=== PATIENT | male | born 1945 | race Caucasian/White ===

== ENCOUNTER → 2016-09-09 | Outpatient (CLI) | payer MEDICARE, OTHER | END | disposition home or self-care (01) | LOC: Rad HDHVI 11:12 | PROVIDERS: ATTEND Internal Medicine Cardiovascular Disease | DX: S12.091D Other nondisplaced fracture of first cervical vertebra, subsequent encounter for fracture with routine healing (principal); M47.892 Other spondylosis, cervical region; Z98.1 Arthrodesis status; X58.XXXD Exposure to other specified factors, subsequent encounter | CPT/HCPCS: 72050 ==

== ENCOUNTER → 2016-10-15 | Outpatient (CLI) | payer MEDICARE, OTHER | END | disposition home or self-care (01) | LOC: Rad HDHVI 11:13 | PROVIDERS: ATTEND Internal Medicine Cardiovascular Disease | DX: M47.892 Other spondylosis, cervical region (principal); Z98.1 Arthrodesis status | CPT/HCPCS: 72040 ==

== ENCOUNTER → 2016-11-19 | Outpatient (CLI) | payer MEDICARE, OTHER | END | disposition home or self-care (01) | LOC: Rad HDHVI 14:18 | PROVIDERS: ATTEND Internal Medicine Cardiovascular Disease | DX: M47.892 Other spondylosis, cervical region (principal); M12.88 Other specific arthropathies, not elsewhere classified, other specified site; I10 Essential (primary) hypertension; I73.9 Peripheral vascular disease, unspecified; R06.00 Dyspnea, unspecified; Z98.1 Arthrodesis status | CPT/HCPCS: 72040 ==

== ENCOUNTER → 2016-12-22 | Outpatient (CLI) | payer MEDICARE, OTHER | END | disposition home or self-care (01) | LOC: Rad HDHVI 10:57 | PROVIDERS: ATTEND Internal Medicine Cardiovascular Disease | DX: M47.812 Spondylosis without myelopathy or radiculopathy, cervical region (principal); M12.88 Other specific arthropathies, not elsewhere classified, other specified site; M43.22 Fusion of spine, cervical region | CPT/HCPCS: 72052 ==

== ENCOUNTER → 2017-03-03 | Outpatient (CLI) | payer MEDICARE, OTHER ==
[~2017-03-03] VITALS: Ht 165.1 cm; Wt 54.4 kg
[2017-03-03 12:13] LABS: Urine Bilirubin Negative (Negative); Urine Blood Negative /uL (Negative); Urine Color Yellow (Yellow); Urine Glucose Normal (Normal); Urine Ketone Negative (Negative); Urine Nitrite Negative (Negative); Urine Urobilinogen Normal (Negative)
[2017-03-03 12:16] LABS: Basophils # (auto) 0 uL; Basophils % (auto) 0.6 % (0.0-2.0); CONDITION Y; Eosinophils # (auto) 0.2 uL; Eosinophils % (auto) 3.1 % (0.0-7.0); Hematocrit 44.8 % (41.0-53.0); Lymphocytes # (auto) 1.9 uL; Lymphocytes % (auto) 28.4 % (10.0-50.0); Mean Corpuscular Hemoglobin 30.4 pg (28.0-32.0); Mean Corpuscular Hgb Conc. 33.4 g/dL (32.0-36.0); Mean Corpuscular Volume 90.9 fL (80.0-100.0); Mean Platelet Volume 8.8 fL (7.4-10.4); Monocytes # (auto) 0.6 uL; Monocytes % (auto) 9.7 % (0.0-12.0); Neutrophils # (auto) 3.8 uL; Neutrophils % (auto) 58.2 % (37.0-80.0); Platelet Count (auto) 327 10^3/uL (140-450); Red Cell Distribution Width 15.9 % (11.6-16.0); White Blood Cell 6.6 10^3/uL (4.4-10.8)
[2017-03-03 13:18] LABS: Albumin 3.8 g/dL (3.4-5.0); BUN/Creatinine Ratio 18.8; Bilirubin, Direct 0.1 mg/dL (0-0.2); Bilirubin, Total 0.6 mg/dL (0.2-1.0); Calcium 8.9 mg/dL (8.5-10.1); Potassium 4.1 mmol/L (3.5-5.1); Total Protein 7.2 g/dL (6.4-8.2)
== END | disposition home or self-care (01) ==
LOC: Rad HDHVI 08:19
PROVIDERS: ATTEND Internal Medicine Cardiovascular Disease
DX: I10 Essential (primary) hypertension (principal); E78.00 Pure hypercholesterolemia, unspecified; K74.1 Hepatic sclerosis; E11.9 Type 2 diabetes mellitus without complications; I70.90 Unspecified atherosclerosis; R97.20 Elevated prostate specific antigen [PSA]; E03.9 Hypothyroidism, unspecified; D64.9 Anemia, unspecified; R53.81 Other malaise; E55.9 Vitamin D deficiency, unspecified; N39.0 Urinary tract infection, site not specified
CPT/HCPCS: 36415; 78452; 80048; 80061; 80076; 81003; 82306; 83036; 84153; 84403; 84443; 85025; 93017; 96374; A9500

== ENCOUNTER → 2017-05-11 | Outpatient (CLI) | payer MEDICARE, OTHER ==
[~2017-05-11] MED LIST: IOHEXOL 350 MG/ML 100ML IJ ONE
[2017-05-11 11:00] VITALS: BP 132/85
[2017-05-11 12:05] VITALS: BP 150/80
== END | disposition home or self-care (01) ==
LOC: Rad HDHVI 10:43
PROVIDERS: ATTEND Internal Medicine Cardiovascular Disease
DX: S12.090A Other displaced fracture of first cervical vertebra, initial encounter for closed fracture (principal); R70.0 Elevated erythrocyte sedimentation rate; M43.22 Fusion of spine, cervical region; I25.10 Atherosclerotic heart disease of native coronary artery without angina pectoris; R91.1 Solitary pulmonary nodule; X58.XXXA Exposure to other specified factors, initial encounter; Y93.89 Activity, other specified; Y92.89 Other specified places as the place of occurrence of the external cause; Y99.8 Other external cause status
CPT/HCPCS: 36415; 70491; 71260; 82565; 85652; 96374; G0463; Q9967

== ENCOUNTER → 2019-01-18 | Outpatient (CLI) | payer MEDICARE, OTHER ==
[2019-01-18 09:45] VITALS: BP 114/73
[2019-01-18 11:42] VITALS: BP 136/70
== END | disposition home or self-care (01) ==
LOC: Rad HDHVI 09:37
PROVIDERS: ATTEND Internal Medicine Cardiovascular Disease
DX: R94.4 Abnormal results of kidney function studies (principal)
CPT/HCPCS: 36415; 70496; 82565; G0463; Q9967

== ENCOUNTER → 2019-01-19 | Outpatient (CLI) | payer MEDICARE, OTHER | END | disposition home or self-care (01) | LOC: Rad HDHVI 15:07 | PROVIDERS: ATTEND Internal Medicine Cardiovascular Disease | DX: R00.2 Palpitations (principal); R07.89 Other chest pain | CPT/HCPCS: 93880 ==

== ENCOUNTER → 2020-06-05 | Outpatient (CLI) | payer MEDICARE, OTHER | END | disposition home or self-care (01) | LOC: Rad HDHVI 14:26 | PROVIDERS: ATTEND Internal Medicine Cardiovascular Disease | DX: R00.2 Palpitations (principal); G45.9 Transient cerebral ischemic attack, unspecified | CPT/HCPCS: 93306 ==

== ENCOUNTER → 2020-06-07 | Outpatient (CLI) | payer MEDICARE, OTHER ==
[2020-06-07 11:56] LABS: Urine Blood Negative /uL (Negative); Urine Specific Gravity 1.021 (1.001-1.035)
[2020-06-07 11:58] LABS: Basophils # (auto) 0.1 10 ^3/uL (0-0.2); Basophils % (auto) 1.1 % (0.0-2.0); Eosinophils # (auto) 0.2 10 ^3/uL (0-0.8); Eosinophils % (auto) 2.7 % (0.0-7.0); Hematocrit 45.7 % (41.0-53.0); Hemoglobin 15.6 g/dL (13.5-17.5); Lymphocytes # (auto) 1.6 10 ^3/uL (0.4-5.4); Mean Corpuscular Hemoglobin 32.3 pg (28.0-32.0); Mean Corpuscular Hgb Conc. 34.2 g/dL (32.0-36.0); Mean Corpuscular Volume 94.4 fL (80.0-100.0); Monocytes # (auto) 0.7 10 ^3/uL (0-1.3); Monocytes % (auto) 10.8 % (0.0-12.0); Neutrophils # (auto) 3.6 10 ^3/uL (1.6-8.6); Neutrophils % (auto) 59.4 % (37.0-80.0); Platelet Count (auto) 244 10^3/uL (140-450); Red Blood Cells 4.84 10^6/uL (4.5-5.90); Red Cell Distribution Width 13.5 % (11.8-14.3)
[2020-06-07 12:16] LABS: Albumin 3.8 g/dL (3.4-5.0); Calcium 8.9 mg/dL (8.5-10.1)
[2020-06-07 12:41] LABS: Prostate Specific Antigen 2.43 ng/mL (0.0-4.0)
== END | disposition home or self-care (01) ==
LOC: LAB 08:10
PROVIDERS: ATTEND Internal Medicine Cardiovascular Disease
DX: C61 Malignant neoplasm of prostate (principal); D51.3 Other dietary vitamin B12 deficiency anemia; I10 Essential (primary) hypertension; E11.9 Type 2 diabetes mellitus without complications; E55.9 Vitamin D deficiency, unspecified; D64.9 Anemia, unspecified; R00.2 Palpitations; R53.1 Weakness; R30.0 Dysuria
CPT/HCPCS: 36415; 80053; 80061; 81003; 82306; 82607; 83036; 84153; 84403; 84439; 84443; 85025

== ENCOUNTER → 2020-06-12 | Outpatient (CLI) | payer MEDICARE, OTHER ==
[~2020-06-12] VITALS: Ht 165.1 cm; Wt 52.2 kg
== END | disposition home or self-care (01) ==
LOC: Rad HDHVI 09:37
PROVIDERS: ATTEND Internal Medicine Cardiovascular Disease
DX: R06.02 Shortness of breath (principal); R07.89 Other chest pain
CPT/HCPCS: 78452; 93017; 96374; A9500

== ENCOUNTER → 2021-07-02 | Outpatient (CLI) | payer MEDICARE, OTHER ==
[2021-07-02 11:43] LABS: Basophils # (auto) 0 10 ^3/uL (0-0.2); Basophils % (auto) 0.7 % (0.0-2.0); Eosinophils # (auto) 0.2 10 ^3/uL (0-0.8); Eosinophils % (auto) 3.7 % (0.0-7.0); Hematocrit 44.7 % (41.0-53.0); Hemoglobin 15.6 g/dL (13.5-17.5); Lymphocytes # (auto) 1.6 10 ^3/uL (0.4-5.4); Lymphocytes % (auto) 29.5 % (10.0-50.0); Mean Corpuscular Hemoglobin 32.4 pg (28.0-32.0); Mean Corpuscular Hgb Conc. 34.8 g/dL (32.0-36.0); Monocytes # (auto) 0.5 10 ^3/uL (0-1.3); Monocytes % (auto) 10.1 % (0.0-12.0); Neutrophils # (auto) 2.9 10 ^3/uL (1.6-8.6); Nucleated Red Blood Cells % 0.1 %; Red Blood Cells 4.81 10^6/uL (4.5-5.90); Red Cell Distribution Width 13.3 % (11.8-14.3); Urine Blood Negative /uL (Negative); Urine Specific Gravity 1.019 (1.001-1.035); White Blood Cell 5.3 10^3/uL (4.4-10.8)
[2021-07-02 11:56] LABS: Free T4 (Free Thyroxine) 1.3 ng/dL (0.89-1.76)
[2021-07-02 11:57] LABS: Potassium 4.1 mmol/L (3.5-5.1); Prostate Specific Antigen 2.16 ng/mL (0.0-4.0)
[2021-07-02 12:31] LABS: Albumin 3.3 g/dL (3.4-5.0); BUN/Creatinine Ratio 24.4; Bilirubin, Total 0.8 mg/dL (0.2-1.0); Calcium 8.6 mg/dL (8.5-10.1)
== END | disposition home or self-care (01) ==
LOC: LAB 08:01
PROVIDERS: ATTEND Internal Medicine Cardiovascular Disease
DX: C61 Malignant neoplasm of prostate (principal); E11.9 Type 2 diabetes mellitus without complications; D64.9 Anemia, unspecified; D51.3 Other dietary vitamin B12 deficiency anemia; I10 Essential (primary) hypertension; E55.9 Vitamin D deficiency, unspecified; R00.2 Palpitations; R53.1 Weakness; R30.0 Dysuria
CPT/HCPCS: 36415; 80053; 80061; 81003; 82306; 82607; 83036; 84153; 84403; 84439; 84443; 85025

== ENCOUNTER → 2021-08-27 | Outpatient (CLI) | payer MEDICARE, OTHER | END | disposition home or self-care (01) | LOC: Rad HDHVI 14:50 | PROVIDERS: ATTEND Internal Medicine Cardiovascular Disease | DX: S12.090A Other displaced fracture of first cervical vertebra, initial encounter for closed fracture (principal); Z98.1 Arthrodesis status; X58.XXXA Exposure to other specified factors, initial encounter; Y93.89 Activity, other specified; Y92.89 Other specified places as the place of occurrence of the external cause; Y99.8 Other external cause status | CPT/HCPCS: 72125 ==

== ENCOUNTER → 2021-09-03 | Outpatient (CLI) | payer MEDICARE, OTHER | END | disposition home or self-care (01) | LOC: Rad HDHVI 14:03 | PROVIDERS: ATTEND Internal Medicine Cardiovascular Disease | DX: R00.2 Palpitations (principal); I20.0 Unstable angina | CPT/HCPCS: 93306 ==

== ENCOUNTER → 2021-09-06 | Outpatient (CLI) | payer MEDICARE, OTHER | END | disposition home or self-care (01) | LOC: Rad HDHVI 14:51 | PROVIDERS: ATTEND Internal Medicine Cardiovascular Disease | DX: I65.29 Occlusion and stenosis of unspecified carotid artery (principal) | CPT/HCPCS: 93880 ==

== ENCOUNTER → 2022-03-20 | Outpatient (CLI) | payer MEDICARE, OTHER ==
[2022-03-20 11:23] LABS: Urine Blood Negative /uL (Negative); Urine Specific Gravity 1.018 (1.001-1.035)
[2022-03-20 11:31] LABS: Albumin 3.6 g/dL (3.4-5.0); Calcium 9.1 mg/dL (8.5-10.1)
[2022-03-20 11:37] LABS: BUN/Creatinine Ratio 22.1; Basophils # (auto) 0.1 10 ^3/uL (0-0.2); Basophils % (auto) 0.9 % (0.0-2.0); Eosinophils # (auto) 0.2 10 ^3/uL (0-0.8); Eosinophils % (auto) 2.8 % (0.0-7.0); Hematocrit 46.8 % (41.0-53.0); Hemoglobin 15.2 g/dL (13.5-17.5); Lymphocytes # (auto) 1.5 10 ^3/uL (0.4-5.4); Mean Corpuscular Hemoglobin 30.4 pg (28.0-32.0); Mean Corpuscular Hgb Conc. 32.6 g/dL (32.0-36.0); Mean Corpuscular Volume 93.2 fL (80.0-100.0); Monocytes # (auto) 0.5 10 ^3/uL (0-1.3); Neutrophils # (auto) 3.3 10 ^3/uL (1.6-8.6); Neutrophils % (auto) 60.3 % (37.0-80.0); Red Blood Cells 5.02 10^6/uL (4.5-5.90); Red Cell Distribution Width 13.2 % (11.8-14.3); Total Protein 6.6 g/dL (6.4-8.2); White Blood Cell 5.5 10^3/uL (4.4-10.8)
[2022-03-20 11:42] LABS: Free T4 (Free Thyroxine) 1.13 ng/dL (0.89-1.76); Prostate Specific Antigen 1.79 ng/mL (0.0-4.0)
== END | disposition home or self-care (01) ==
LOC: LAB 08:25
PROVIDERS: ATTEND Internal Medicine Cardiovascular Disease
DX: C61 Malignant neoplasm of prostate (principal); E11.9 Type 2 diabetes mellitus without complications; D64.9 Anemia, unspecified; E55.9 Vitamin D deficiency, unspecified; I10 Essential (primary) hypertension; R00.2 Palpitations; R53.1 Weakness; R30.0 Dysuria; D51.3 Other dietary vitamin B12 deficiency anemia
CPT/HCPCS: 36415; 80053; 80061; 81003; 82306; 82607; 83036; 84153; 84403; 84439; 84443; 85025

== ENCOUNTER → 2022-03-21 | Outpatient (CLI) | payer MEDICARE, OTHER ==
[~2022-03-21] MED LIST changes: +READI-CAT 2 (BARIUM SULF)(VANILLA SMOOTHIE) 450ML ONE
[2022-03-21 09:57] VITALS: BP 120/71
[2022-03-21 11:07] VITALS: BP 126/86
== END | disposition home or self-care (01) ==
LOC: Rad HDHVI 09:44
PROVIDERS: ATTEND Internal Medicine Cardiovascular Disease
DX: N28.1 Cyst of kidney, acquired (principal); K57.30 Diverticulosis of large intestine without perforation or abscess without bleeding; R63.4 Abnormal weight loss; R91.8 Other nonspecific abnormal finding of lung field; Q40.1 Congenital hiatus hernia
CPT/HCPCS: 71260; 74177; G0463; Q9967

== ENCOUNTER → 2022-05-20 | Outpatient (CLI) | payer MEDICARE, OTHER | END | disposition home or self-care (01) | LOC: Rad HDHVI 10:10 | PROVIDERS: ATTEND Internal Medicine Cardiovascular Disease | DX: M17.11 Unilateral primary osteoarthritis, right knee (principal); M79.604 Pain in right leg; M77.31 Calcaneal spur, right foot; M77.8 Other enthesopathies, not elsewhere classified | CPT/HCPCS: 73562; 73590 ==

== ENCOUNTER → 2022-12-24 | Outpatient (CLI) | payer MEDICARE, OTHER | END | disposition home or self-care (01) | LOC: Rad HDHVI 15:44 | PROVIDERS: ATTEND Internal Medicine Cardiovascular Disease | DX: M19.042 Primary osteoarthritis, left hand (principal); M19.041 Primary osteoarthritis, right hand; M25.541 Pain in joints of right hand; M25.542 Pain in joints of left hand | CPT/HCPCS: 73130 ==

== ENCOUNTER → 2023-04-14 | Outpatient (CLI) | payer MEDICARE, OTHER ==
[~2023-04-14] MED LIST changes: -IOHEXOL 350 MG/ML 100ML IJ ONE; +MULTIPLE VIT 10 ML IV ONE; +MVI in SODIUM CHLORIDE 0.9% 500 ML IVB ONE; -READI-CAT 2 (BARIUM SULF)(VANILLA SMOOTHIE) 450ML ONE
[2023-04-14 11:07] VITALS: BP 121/74; PULSE 71; RESP 18; O2SAT 98
[2023-04-14 13:42] VITALS: BP 128/77; PULSE 72; RESP 18; O2SAT 98
== END | disposition home or self-care (01) ==
LOC: CHF HDHVI 11:09
PROVIDERS: ATTEND Internal Medicine Cardiovascular Disease
DX: E86.0 Dehydration (principal); R53.83 Other fatigue; M19.041 Primary osteoarthritis, right hand; M19.042 Primary osteoarthritis, left hand
CPT/HCPCS: 96365; 96366; G0463; J7040; 96360; 96361

== ENCOUNTER → 2024-09-29 | Outpatient (CLI) | payer MEDICARE, OTHER | END | disposition home or self-care (01) | LOC: Rad HDHVI 16:06 | PROVIDERS: ATTEND Internal Medicine Cardiovascular Disease | DX: I10 Essential (primary) hypertension (principal) | CPT/HCPCS: 93306 ==

== ENCOUNTER → 2024-10-04 | Outpatient (CLI) | payer MEDICARE, OTHER ==
[~2024-10-04] MED LIST changes: +IOHEXOL 350 MG/ML 100ML IJ ONE; -MULTIPLE VIT 10 ML IV ONE; -MVI in SODIUM CHLORIDE 0.9% 500 ML IVB ONE
[2024-10-04 10:03] VITALS: BP 124/72; PULSE 86; RESP 16; O2SAT 97
[2024-10-04 10:28] VITALS: BP 127/70; PULSE 88; RESP 16; O2SAT 97
--- NOTE | 2024-10-04 13:06 | DVH ---
EXAM: CT CERVICAL WITHOUT CONTRAST INDICATION: NECK PAIN EXAM DATE: 10/04/2024 10:06 AM COMPARISON: CERVICAL WITHOUT CONTRAST on DOS: 08/27/21 TECHNIQUE: Multiple axial CT images of the cervical spine were obtained using bone algorithm. Axial a nd coronal reformatting was done. Bone and soft tissue windows were reviewed. Radiation Dose Information: CT Dose: CTDI volume is 14.53 mGy. Dose-length product is 286.92 mGy*cm FINDINGS: Posterior spinal fusion of C1 and C2 with intact hardware. Multiple hyperdense foci adjacent to the C2 on C3 spinous processes. Grade 1 anterolisthesis of C3 on C4 and C7 on T1. Multilevel moderate to severe degenerative changes of the cervical spine. There is slight posterior subluxation of the left lateral mass of C1 on C2. No evidence of acute traumatic fracture. C2-C3: Mild posterior disc osteophyte complex without significant spinal canal stenosis. Yyba-[id number]-[id number] rate right with severe left-sided neural foramina stenosis from uncovertebral hypertrophy and facet o steoarthritis. C3-C4: Posterior disc osteophyte complex causing mild spinal canal stenosis. Moderate right with mary re left-sided neural foramina stenosis from uncovertebral hypertrophy and facet osteoarthritis. C4-C5: Mild posterior disc osteophyte complex without significant spinal canal stenosis. Moderate to severe right with severe left-sided neural foramina stenosis from uncovertebral hypertrophy and facet osteoarthritis. C5-C6: Mild posterior disc osteophyte complex without significant spinal canal stenosis. Severe right with moderate to severe left-sided neural foramina stenosis from uncovertebral hypertrophy and facet osteoarthritis. C6-C7: No significant spinal canal stenosis. Moderate to severe bilateral neural foramina stenosis fr om uncovertebral hypertrophy and facet osteoarthritis. C7-T1: No significant spinal canal or neural foramina stenosis. The paraspinal muscles unremarkable. The thyroid gland is unremarkable. Biapical atelectasis IMPRESSION: No evidence of acute traumatic fractures. Multilevel moderate to severe degenerative changes of the cervical spine as detailed above. MRI is recommended for further evaluation.
--- NOTE | 2024-10-04 13:18 | DVH ---
CT LS SPINE WO CONTRAST INDICATION: LBP EXAM DATE: 10/04/2024 10:11 AM COMPARISON: None RADIATION DOSE: CTDIvol: 6.97 mGy, DLP: 159.63 mGy*cm Technique: Utilizing the CT scanner, contiguous axial scans were obtained through the lumbar spine. C oronal and sagittal reformatted images were then generated. All CT scans at this medical facility are performed using dose modulation techniques as appropriate t o a performed exam including the following: Automated exposure control was utilized; adjustment of th e MA and/or KV according to patient size; and use of iterative reconstruction technique. FINDINGS: 5 [id number] lumbar-type vertebrae. Straightening of the lumbar lordosis. Minimal dextroconvex curvature of the lumbar spine. The vertebral body heights are maintained. Grade 1 retrolisthesis of L 3 on L4 with grade 1 anterolisthesis of L4 on L5. Multilevel moderate to severe degenerative changes of the lumbar spine. T12-L1: No significant spinal canal or neural foramina stenosis. L1-L2: Mild posterior disc bulge without significant spinal canal stenosis. Moderate right with sever e left-sided neural foramina stenosis. L2-L3: Posterior disc bulge with ligamentum flavum hypertrophy and dorsal epidural lipomatosis contri buting to [id number] spinal canal stenosis with moderate right and severe left-sided neural for judith stenosis. L3-L4: Posterior disc osteophyte complex with ligamentum flavum hypertrophy and dorsal epidural lipom atosis consistent severe spinal canal stenosis with severe bilateral neural foramina stenosis. L4-L5: Mild posterior disc osteophyte complex with ligamentum flavum hypertrophy causing mild spinal canal stenosis with moderate to severe bilateral neural foramina stenosis. L5-S1: Mild posterior disc osteophyte complex without significant spinal canal stenosis. Severe bilat eral neural foramina stenosis. The paraspinal muscles are unremarkable. Bibasilar atelectasis/scarring. IMPRESSION: Multilevel moderate to severe degenerative changes of the lumbar spine as detailed above. Severe spinal canal stenosis at L3-L4. Moderate right with severe left-sided neural foramina stenosis at L1-L2 and L2-L3, severe bilateral n eural foramina stenosis at L3-L4 and L5-S1 with moderate to severe bilateral neural foramina stenosis at L4-L5.
--- NOTE | 2024-10-04 18:12 | DVH ---
Examination: CT ANGIO ABDOMINAL WITH RUN CLINICAL HISTORY: CLAUDICATION Comparison: None Technique: Using helical technique, CT data from the lung bases through the toes was obtained during rapid IV contrast infusion of 100 cc Omni 350. The examination was timed to the arterial system to ge nerate a CT angiographic study. 3D images were generated at an independent work station. Dose reducti on techniques included automated exposure control. Radiation Dose Information: CT Dose: CTDI volume is 22 mGy. Dose-length product is 1013 mGy*cm Findings: Abdominal aorta: Normal caliber, patent Celiac artery: Moderate stenosis proximally. SMA: Patent Renal arteries: Patent NOMAN: Patent Right lower extremity: Common iliac artery: Patent External iliac artery: Patent Internal iliac artery: Patent Common femoral artery: Patent Profunda femoral artery: Patent Superficial femoral artery: Patent Popliteal artery: Patent Anterior tibial artery: Patent Peroneal tibial trunk: Patent Peroneal artery: Patent Posterior tibial artery: Patent Dorsalis pedis artery: Patent Left lower extremity: Common iliac artery: Patent External iliac artery: Patent Internal iliac artery: Patent Common femoral artery: Patent Profunda femoral artery: Patent Superficial femoral artery: Patent Popliteal artery: Patent Anterior tibial artery: Patent Peroneal tibial trunk: Patent Peroneal artery: Patent Posterior tibial artery: Patent Dorsalis pedis artery: Patent Lung bases: Atelectasis and scarring. Abdomen/Pelvis: Liver: The liver is normal in size and morphology,. No focal hepatic lesion. The portal veins are pat ent. Biliary System: Gallbladder: Normal Bile Ducts: No intrahepatic or extrahepatic biliary ductal dilation. Spleen: No splenomegaly or focal splenic lesion. Pancreas: No masses or ductal dilation. Adrenals: Normal. Urinary System: Kidneys and Ureters: Normal in size and location. Right renal cysts. Punctate bilateral renal calculi . No hydronephrosis or hydroureter. Bladder: Decompressed. GI System: Stomach, small bowel, and large bowel are normal in caliber without wall thickening or dil ation Appendix is not identified. Right inguinal hernia containing colon. Lymph nodes: No lymphadenopathy. Peritoneal cavity and surface: No free fluid. No pneumoperitoneum. Soft Tissues: Normal. Reproductive Organs: Normal. Bones: No acute fracture or aggressive osseous lesion. Impression: Vascular: 1. No evidence of vascular disease. Right Lower Extremity: 1. Patent inflow 2. Patent outflow 3. Patent 3 vessel runoff Left Lower Extremity: 1. Patent inflow 2. Patent outflow 3. Patent 3 vessel runoff Abdomen/Pelvis: 1. No acute abdominal pelvic process. Right inguinal hernia containing colon. No evidence of obstruct ion. Bilateral nonobstructive renal calculi. Right renal cysts. HS:Y
== END | disposition home or self-care (01) ==
LOC: Rad HDHVI 09:39
PROVIDERS: ATTEND Internal Medicine Cardiovascular Disease
DX: S13.120A Subluxation of C1/C2 cervical vertebrae, initial encounter (principal); K40.90 Unilateral inguinal hernia, without obstruction or gangrene, not specified as recurrent; N20.0 Calculus of kidney; N28.1 Cyst of kidney, acquired; J98.11 Atelectasis; I77.4 Celiac artery compression syndrome; M47.816 Spondylosis without myelopathy or radiculopathy, lumbar region; M47.812 Spondylosis without myelopathy or radiculopathy, cervical region; M48.061 Spinal stenosis, lumbar region without neurogenic claudication; M48.02 Spinal stenosis, cervical region; M43.13 Spondylolisthesis, cervicothoracic region; M43.16 Spondylolisthesis, lumbar region; M40.46 Postural lordosis, lumbar region; M25.78 Osteophyte, vertebrae; M43.22 Fusion of spine, cervical region; M51.360 Other intervertebral disc degeneration, lumbar region with discogenic back pain only; E88.2 Lipomatosis, not elsewhere classified; I73.9 Peripheral vascular disease, unspecified; M54.2 Cervicalgia; X58.XXXA Exposure to other specified factors, initial encounter; Y93.89 Activity, other specified; Y92.89 Other specified places as the place of occurrence of the external cause; Y99.8 Other external cause status
CPT/HCPCS: 72125; 72131; 75635; G0463; Q9967